=== PATIENT | male | born 1960 | race African-American/Black ===

== ENCOUNTER 2019-09-30 10:26 | Emergency (ER) | payer OTHER ==
[2019-09-30 12:34] LABS: #Eosinphils 0.1 thou/uL (0.0-0.7); #Lymphocytes 2.1 thou/uL (1.20-3.40); #Monocytes 0.6 thou/uL (0.11-0.59); #Neutrophils 5.8 thou/uL (1.40-6.50); %Eosinophils 0.9 % (0.0-10.0); %Lymphocytes 24.3 % (21.0-51.0); %Monocytes 6.9 % (0.0-10.0); %Neutrophils 67.9 % (42.0-75.0); Hemoglobin 14.1 g/dL (14.0-18.0); Mean Corpuscular HGB CONC 34.3 g/dL (32.0-36.0); Mean Corpuscular Hemoglobin 29.2 pg (27.0-31.0); Mean Corpuscular Volume 85.3 fL (78.0-98.0); Mean Platelet Volume 7.5 fL (7.4-10.4); Platelet Count 247 thou/uL (130-400); RBC Distribution Width 11.9 % (11.5-14.5); Red Blood Cell (RBC) Count 4.82 mill/uL (4.70-6.10); White Blood Cell (WBC) Count 8.5 thou/uL (4.8-10.8)
[2019-09-30] MEDS ORDERED: Sodium Chloride 0.9% 100 ML ONE (12:43)
[2019-09-30] MEDS ORDERED: Ketorolac Tromethamine 30 MG/ML VIAL ONE (12:43)
[2019-09-30] MEDS ORDERED: cefTRIAXone\\ROCEPHIN 2 GM VIAL ONE (12:43)
[2019-09-30] MEDS ORDERED: Dexamethasone 10 MG/ML VIAL ONE (12:45)
[2019-09-30 13:22] LABS: ALT (SGPT) 21 U/L (8-55); AST (SGOT) 17 U/L (5-34); Albumin 4.7 g/dL (3.5-5.0); Alkaline Phosphatase 71 U/L (40-110); Anion Gap 14 mmol/L (10-20); BUN (Urea Nitrogen) 7 mg/dL (8.4-25.7); Bilirubin, Total 0.4 mg/dL (0.2-1.2); Calc. Creatinine Clearance 0 mL/min (70-130); Calcium 9.6 mg/dL (7.8-10.44); Carbon Dioxide 24 mmol/L (22-29); Chloride 102 mmol/L (98-107); Estimated GFR-MDRD Greater than 90; Globulin 3.2 g/dL (2.4-3.5); Glucose 98 mg/dL (70-105); Lipase 297 U/L (8-78); Potassium 3.9 mmol/L (3.5-5.1); Protein, Total 7.9 g/dL (6.0-8.3); Sodium 136 mmol/L (136-145)
--- NOTE | 2019-09-30 13:38 | CT ---
EXAM: CT NECK SOFT TISSUE POST CONTRAST: HISTORY:Right submandibular swelling. COMPARISON:None CORRELATION:None FINDINGS: Brain parenchyma: No pathologic enhancement of the visualized brain parenchyma. Sinuses: Mucosal thickening of the paranasal sinuses Nasopharynx:Mild soft tissue fullness of the posterior nasopharynx. Correlate for lymphoid hyperplasi a. Oral cavity:Limited evaluation due to dental amalgam artifact. No obvious calcifications or masses in the oral cavity, including the sublingual space. Midline fatty raphae of the tongue is preserved. Hypopharynx: No mucosal abnormality. Larynx: No mucosal abnormality. Paraspinal muscles: Symmetric attenuation of the paraspinal muscles and symmetric attenuation of the sternocleidomastoid muscles.. Parotid and salivary glands: Symmetric attenuation of the parotid glands. Mild slight asymmetric hype remia and lobulation of the right submandibular gland. Mild dilatation of the right submandibular duct. A definite sialolith is not appreciated in the expected region of the orifice of the right subm andibular duct. Thyroid gland: Unremarkable. Spine: Vertebral body height is maintained. No fracture. No significant central canal stenosis or sig nificant neural foraminal narrowing. Limited evaluation due to technique. Lymph nodes: No evidence of lymphadenopathy by size criteria Lung apices and upper mediastinum: No acute abnormality. IMPRESSION: 1. Mild dilatation of the right submandibular gland with mild inflammatory change. Low-grade sialoade nitis is suspected. No associated spondylolysis. 2. Fullness of the nasopharynx which may represent lymphoid hyperplasia. Other etiologies cannot be e xcluded. Direct visualization to exclude mucosal based neoplasm is recommended
[2019-09-30] MEDS ORDERED: Iopamidol-370 76% 500 ML 1 ML ONE (13:46)
== END 2019-09-30 15:17 | disposition home or self-care (01) ==
LOC: ERS 10:26
DX: K11.20 Sialoadenitis, unspecified (principal); F41.9 Anxiety disorder, unspecified; F17.210 Nicotine dependence, cigarettes, uncomplicated; Z79.899 Other long term (current) drug therapy
CPT/HCPCS: 36415; 70491; 80053; 83690; 85025; 87040; 87081; 87430; 96361; 96365; 96375; J0696; J1100; J1885; J3490; Q9967

== ENCOUNTER 2022-01-19 12:37 | Outpatient (CLI) | payer OTHER | END 2022-01-19 12:38 | disposition home or self-care (01) | LOC: TBSIIMAG 12:37 | PROVIDERS: ATTEND Surgery | DX: M47.22 Other spondylosis with radiculopathy, cervical region (principal) | CPT/HCPCS: 72050; 72141 ==

== ENCOUNTER 2022-05-01 15:08 | Outpatient (CLI) | payer OTHER ==
[2022-05-01 16:11] LABS: Hemoglobin 13.6 g/dL (13.5-17.5); Mean Corpuscular HGB CONC 32.6 g/dL (32.0-36.0); Mean Corpuscular Hemoglobin 27.1 pg (27.0-33.0); Mean Corpuscular Volume 83.1 fl (81.2-95.1); Mean Platelet Volume 10.2 fl (7.4-10.4); Platelet Count 257 10x3/uL (150-450); RBC Distribution Width 14.1 % (11.5-14.5); Red Blood Cell (RBC) Count 5.02 10x6/uL (4.32-5.72); White Blood Cell (WBC) Count 5.8 10x3/uL (3.5-10.5)
[2022-05-01 16:33] LABS: Anion Gap 14 mmol/L (10-20); BUN (Urea Nitrogen) 7 mg/dL (8.4-25.7); Calc. Creatinine Clearance 0 mL/min (70-130); Calcium 9.9 mg/dL (7.8-10.44); Carbon Dioxide 28 mmol/L (23-31); Chloride 105 mmol/L (98-107); Estimated GFR 83; Glucose 90 mg/dL (80-115); Potassium 4.3 mmol/L (3.5-5.1); Sodium 143 mmol/L (136-145)
[2022-05-01 16:34] LABS: PTT 27.2 sec (22.0-33.0); Prothrombin Time 10.4 sec (9.5-12.1)
== END 2022-05-01 15:09 | disposition home or self-care (01) ==
LOC: LABBT 15:08
PROVIDERS: ATTEND Surgery
DX: Z01.818 Encounter for other preprocedural examination (principal); M51.06 Intervertebral disc disorders with myelopathy, lumbar region; M54.12 Radiculopathy, cervical region; M48.02 Spinal stenosis, cervical region; Z20.822 Contact with and (suspected) exposure to COVID-19
CPT/HCPCS: 80048; 85027; 85610; 85730; 86850; 86900; 86901; 87811; 93005; 93010

== ENCOUNTER 2022-05-01 15:30 | Inpatient (IN) | payer OTHER ==
[2022-05-01 16:11] LABS: Hemoglobin 13.6 g/dL (13.5-17.5); Mean Corpuscular HGB CONC 32.6 g/dL (32.0-36.0); Mean Corpuscular Hemoglobin 27.1 pg (27.0-33.0); Mean Corpuscular Volume 83.1 fl (81.2-95.1); Mean Platelet Volume 10.2 fl (7.4-10.4); Platelet Count 257 10x3/uL (150-450); RBC Distribution Width 14.1 % (11.5-14.5); Red Blood Cell (RBC) Count 5.02 10x6/uL (4.32-5.72); White Blood Cell (WBC) Count 5.8 10x3/uL (3.5-10.5)
[2022-05-01 16:33] LABS: Anion Gap 14 mmol/L (10-20); BUN (Urea Nitrogen) 7 mg/dL (8.4-25.7); Calc. Creatinine Clearance 0 mL/min (70-130); Calcium 9.9 mg/dL (7.8-10.44); Carbon Dioxide 28 mmol/L (23-31); Chloride 105 mmol/L (98-107); Estimated GFR 83; Glucose 90 mg/dL (80-115); Potassium 4.3 mmol/L (3.5-5.1); Sodium 143 mmol/L (136-145)
[2022-05-01 16:34] LABS: PTT 27.2 sec (22.0-33.0); Prothrombin Time 10.4 sec (9.5-12.1)
[2022-05-04] MEDS ORDERED: Thrombin 5000 UNITS/5 ML VIAL ONE (08:27)
[2022-05-04] MEDS ORDERED: Bacitracin Zinc Ointment 30 gm TUBE ONE (08:27)
[2022-05-04] MEDS ORDERED: fentaNYL Citrate/PF 100 MCG/2 ML SYRINGE ONE (08:51)
[2022-05-04] MEDS ORDERED: Midazolam HCl 2 mg/2 ml Vial ONE (08:51)
[2022-05-04] MEDS ORDERED: Lidocaine 1% PF 5 ML VIAL ONE (09:00)
[2022-05-04] MEDS ORDERED: ePHEDrine Sulfate 50 MG/10 ML VIAL ONE (09:00)
[2022-05-04] MEDS ORDERED: Vecuronium 10 MG VIAL ONE (09:00)
[2022-05-04] MEDS ORDERED: PROPOFOL 200 MG/20 ML VIAL ONE (09:00)
[2022-05-04] MEDS ORDERED: PHENYLEPHRINE-NS 100 MCG/ML 10 ML SYRINGE ONE (09:00)
[2022-05-04] MEDS ORDERED: Dexamethasone 20 MG/5 ML VIAL ONE (09:00)
[2022-05-04] MEDS ORDERED: Rocuronium Bromide 10 MG/ML (10ML VIAL) ONE (09:00)
[2022-05-04] MEDS ORDERED: Ondansetron PF 4 MG/2 ML Vial ONE (09:00)
[2022-05-04] MEDS ORDERED: Sodium Chloride 0.9% 100 ML ONE (09:02)
[2022-05-04] MEDS ORDERED: CEFAZOLIN 2 GM VIAL ONE (09:02)
[2022-05-04] MEDS ORDERED: Ondansetron PF 4 MG/2 ML Vial IVP PRN (09:48)
[2022-05-04] MEDS ORDERED: diphenhydrAMINE 25 MG CAP PO PRN (09:48)
[2022-05-04] MEDS ORDERED: tiZANidine HCl 4 MG TAB PO PRN (09:50)
[2022-05-04] MEDS ORDERED: HYDROmorphone 2 MG/ML VIAL ONE (12:16)
[2022-05-04] MEDS ORDERED: SUGAMMADEX SODIUM 200 MG/2 ML VIAL ONE (14:09)
[2022-05-04] MEDS ORDERED: HYDROmorphone 2 MG/ML VIAL SLOW IVP PRN (14:34)
[2022-05-04] MEDS ORDERED: Ondansetron HCl/PF 4 MG/2 ML Vial IVP PRN (14:34)
[2022-05-04] MEDS ORDERED: Promethazine HCl 25 MG/ML VIAL IVPB PRN (14:34)
[2022-05-04] MEDS ORDERED: Meperidine HCl/PF 25 MG/ML VIAL SLOW IVP PRN ×2 (14:34)
[2022-05-04] MEDS ORDERED: Promethazine HCl 25 MG/ML VIAL IM PRN (14:34)
[2022-05-04] MEDS ORDERED: Fentanyl 100 MCG/2 ML VIAL ONE (14:57)
[2022-05-04 16:31] VITALS: BMI 25.7
[2022-05-04] MEDS: CEFAZOLIN 2 GM in Sodium Chloride 0.9% 100 ML IVPB SCH ×2 (16:58→18:53)
[2022-05-04] MEDS: Sodium Chloride 0.9% 1,000 ML IV SCH ×2 (16:58→22:12)
[2022-05-04] MEDS: Loratadine 10 MG TAB PO SCH (21:08)
[2022-05-04] MEDS: Gabapentin 300 MG CAP PO SCH (21:08)
[2022-05-04] MEDS: Atorvastatin Calcium 20 MG TAB PO SCH (21:08)
[2022-05-05] MEDS: CEFAZOLIN 2 GM in Sodium Chloride 0.9% 100 ML IVPB SCH ×3 (02:22→18:05)
[2022-05-05] MEDS: Gabapentin 300 MG CAP PO SCH ×2 (07:40→20:46)
[2022-05-05] MEDS: Acetaminophen 325 MG TAB PO PRN ×2 (07:40→19:15)
[2022-05-05] MEDS ORDERED: Diazepam 5 MG TAB PO PRN (07:53)
[2022-05-05] MEDS: Cholecalciferol 1,000 UNITS (25 MCG) TAB PO SCH (09:56)
[2022-05-05] MEDS: Sodium Chloride 0.9% 1,000 ML IV SCH (14:07)
[2022-05-05] MEDS: Ketorolac Tromethamine 30 MG/ML VIAL IVP PRN (15:43)
[2022-05-05] MEDS: fentaNYL Citrate/PF 2,000 MCG in Sodium Chloride 0.9% 60 ML IV PRN (19:11)
[2022-05-05] MEDS: Chloraseptic Spray 180 ml Bottle PO PRN (19:12)
[2022-05-05] MEDS: Cepastat Lozenges 1 LOZ PO PRN (19:12)
[2022-05-05] MEDS: Atorvastatin Calcium 20 MG TAB PO SCH (20:46)
[2022-05-05] MEDS: Loratadine 10 MG TAB PO SCH (20:46)
[2022-05-06] MEDS: CEFAZOLIN 2 GM in Sodium Chloride 0.9% 100 ML IVPB SCH ×3 (02:09→18:07)
[2022-05-06] MEDS: Sodium Chloride 0.9% 1,000 ML IV SCH ×2 (02:10→15:53)
[2022-05-06] MEDS: Chloraseptic Spray 180 ml Bottle PO PRN ×2 (04:09→20:53)
[2022-05-06] MEDS: Cepastat Lozenges 1 LOZ PO PRN ×2 (04:09→15:53)
[2022-05-06] MEDS: Acetaminophen 325 MG TAB PO PRN (04:19)
[2022-05-06 06:56] LABS: Bacteria/HPF None Seen HPF (None Seen); Bilirubin Negative (Negative); Blood, Urine 3+ (Negative); Clarity Clear (Clear); Glucose, Urine (Dipstick) Normal (Negative); Ketone, Urine 20 mg/dL (Negative); Leukocyte 75 Leu/uL (Negative); Nitrite Negative (Negative); Protein, Urine (Dipstick) 30 mg/dL (Neg-Trace); Specific Gravity, Urine 1.023 (1.002-1.036); Urobilinogen Normal mg/dL (Less than 2)
[2022-05-06] MEDS ORDERED: Dexamethasone 4 mg/ml Vial SLOW IVP SCH (07:00)
[2022-05-06 07:09] LABS: Squamous Epithelial 0-3 HPF (0-3); Urine Culture Reflex Yes Yes
[2022-05-06 08:09] LABS: Anion Gap 14 mmol/L (10-20); BUN (Urea Nitrogen) 7 mg/dL (8.4-25.7); Calc. Creatinine Clearance 95 mL/min (70-130); Calcium 9.2 mg/dL (7.8-10.44); Carbon Dioxide 27 mmol/L (23-31); Chloride 99 mmol/L (98-107); Estimated GFR 87; Glucose 111 mg/dL (80-115); Sodium 136 mmol/L (136-145)
[2022-05-06 08:21] LABS: #Monocytes 1.4 thou/uL (0.11-0.59); #Neutrophils 14.2 thou/uL (1.40-6.50); %Basophils 0.1 % (0.0-1.0); %Eosinophils 0.1 % (0.0-10.0); %Lymphocytes 11.4 % (21.0-51.0); %Monocytes 7.7 % (0.0-10.0); %Neutrophils 80.7 % (42.0-75.0); Hemoglobin 12.9 g/dL (14.0-18.0); Mean Corpuscular HGB CONC 31.9 g/dL (32.0-36.0); Mean Corpuscular Hemoglobin 28.6 pg (27.0-31.0); Mean Corpuscular Volume 89.9 fL (78.0-98.0); Mean Platelet Volume 8.8 fL (7.4-10.4); Platelet Count 175 thou/uL (130-400); RBC Distribution Width 12.3 % (11.5-14.5); White Blood Cell (WBC) Count 17.1 thou/uL (4.8-10.8)
[2022-05-06] MEDS: Cholecalciferol 1,000 UNITS (25 MCG) TAB PO SCH (09:43)
[2022-05-06] MEDS: Gabapentin 300 MG CAP PO SCH ×3 (09:43→20:53)
[2022-05-06] MEDS: Loratadine 10 MG TAB PO SCH (20:53)
[2022-05-06] MEDS: Atorvastatin Calcium 20 MG TAB PO SCH (20:53)
[2022-05-06] MEDS ORDERED: Piperacillin/Tazobactam 3.375 GM in Sodium Chloride 0.9% 100 ML IVPB SCH (22:30)
[2022-05-06] MEDS ORDERED: Diazepam 10 MG/2 ML SYRINGE IVP PRN (23:05)
[2022-05-06] MEDS ORDERED: Acetaminophen 650 MG Suppository PR PRN (23:05)
[2022-05-06] MEDS ORDERED: diphenhydrAMINE 50 MG/ML VIAL IVP PRN (23:06)
[2022-05-06] MEDS: Ketorolac Tromethamine 30 MG/ML VIAL IVP PRN (23:45)
[2022-05-07] MEDS: CEFAZOLIN 2 GM in Sodium Chloride 0.9% 100 ML IVPB SCH ×3 (01:37→17:26)
[2022-05-07] MEDS: Piperacillin/Tazobactam 3.375 GM in Sodium Chloride 0.9% 100 ML IVPB SCH ×3 (01:39→17:54)
[2022-05-07] MEDS: Cepastat Lozenges 1 LOZ PO PRN ×2 (01:40→19:28)
[2022-05-07] MEDS: Sodium Chloride 0.9% 1,000 ML IV SCH ×2 (01:41→23:45)
[2022-05-07] MEDS: fentaNYL Citrate/PF 2,000 MCG in Sodium Chloride 0.9% 60 ML IV PRN (04:47)
[2022-05-07 06:02] LABS: Cardiac Risk 3.7 (Less than 4.5)
[2022-05-07] MEDS: Gabapentin 300 MG CAP PO SCH ×2 (08:54→21:43)
[2022-05-07] MEDS: Cholecalciferol 1,000 UNITS (25 MCG) TAB PO SCH (08:54)
[2022-05-07] MEDS ORDERED: Pantoprazole 40 MG VIAL IVP SCH (09:00)
[2022-05-07] MEDS: Dexamethasone 4 mg/ml Vial SLOW IVP SCH ×2 (11:17→17:54)
[2022-05-07] MEDS ORDERED: Latanoprost 0.005% Ophth Soln 2.5 ml Bottle EA EYE SCH (21:00)
[2022-05-07] MEDS ORDERED: Diazepam 5 MG TAB PO PRN (21:38)
[2022-05-07] MEDS: Loratadine 10 MG TAB PO SCH (21:44)
[2022-05-07] MEDS: Atorvastatin Calcium 20 MG TAB PO SCH (21:44)
[2022-05-08] MEDS: Dexamethasone 4 MG TAB PO SCH ×2 (01:09→06:42)
[2022-05-08] MEDS: Piperacillin/Tazobactam 3.375 GM in Sodium Chloride 0.9% 100 ML IVPB SCH ×2 (01:10→08:54)
[2022-05-08] MEDS ORDERED: Bisacodyl 5 MG TAB PO PRN (07:19)
[2022-05-08] MEDS ORDERED: Polyethylene Glycol 3350 17 GM Packet PO PRN (07:19)
[2022-05-08] MEDS ORDERED: HYDROcodone/Acetaminophen 5/325 mg Tablet PO PRN ×2 (07:45)
[2022-05-08] MEDS ORDERED: Acetaminophen/Codeine 30-300mg Tablet PO PRN (07:45)
[2022-05-08 08:30] VITALS: BP 132/79; TEMP 98.2
[2022-05-08] MEDS: Gabapentin 300 MG CAP PO SCH (08:52)
[2022-05-08] MEDS: Cholecalciferol 1,000 UNITS (25 MCG) TAB PO SCH (08:52)
[2022-05-08] MEDS: Chloraseptic Spray 180 ml Bottle PO PRN (08:53)
[2022-05-08] MEDS: Cepastat Lozenges 1 LOZ PO PRN (08:54)
[2022-05-08] MEDS: Sodium Chloride 0.9% 1,000 ML IV SCH (08:54)
[2022-05-08] MEDS ORDERED: Pantoprazole 40 MG VIAL IVP SCH (09:00)
[2022-05-08] MEDS ORDERED: Docusate 100 MG CAP PO SCH (09:00)
[2022-05-08] MEDS ORDERED: Dexamethasone 1 MG TAB PO SCH (12:00)
[2022-05-08] MEDS: Ketorolac Tromethamine 30 MG/ML VIAL IVP PRN (16:46)
[2022-05-09] MEDS ORDERED: Dexamethasone 1 MG TAB PO SCH (12:00)
[2022-05-10] MEDS ORDERED: Dexamethasone 1 MG TAB PO SCH (12:00)
== END 2022-05-08 17:25 | disposition home or self-care (01) | DRG 453 ==
LOC: SURG A 05-04 07:59 → MSONC 05-04 15:53
PROVIDERS: ADMIT Surgery; ATTEND Internal Medicine
PROC: 0RG20A0 Fusion of 2 or more Cervical Vertebral Joints with Interbody Fusion Device, Anterior Approach, Anterior Column, Open Approach (ICD-10-PCS; principal; 2022-05-04)
PROC: 0RG2071 Fusion of 2 or more Cervical Vertebral Joints with Autologous Tissue Substitute, Posterior Approach, Posterior Column, Open Approach (ICD-10-PCS; 2022-05-04)
PROC: 01N10ZZ Release Cervical Nerve, Open Approach (ICD-10-PCS; 2022-05-04)
PROC: 00NW0ZZ Release Cervical Spinal Cord, Open Approach (ICD-10-PCS; 2022-05-04)
PROC: 0RB30ZZ Excision of Cervical Vertebral Disc, Open Approach (ICD-10-PCS; 2022-05-04)
DX: M48.02 Spinal stenosis, cervical region (principal); J69.0 Pneumonitis due to inhalation of food and vomit; G99.2 Myelopathy in diseases classified elsewhere; N30.01 Acute cystitis with hematuria; M54.12 Radiculopathy, cervical region; E78.5 Hyperlipidemia, unspecified; M19.90 Unspecified osteoarthritis, unspecified site; G89.29 Other chronic pain; R13.10 Dysphagia, unspecified; Z79.899 Other long term (current) drug therapy; Z20.822 Contact with and (suspected) exposure to COVID-19
CPT/HCPCS: 36415; 71045; 76000; 80048; 80061; 81001; 85025; 85027; 85610; 85730; 86850; 86900; 86901; 87040; 87086; 87811; 89220; 93005; 93010; 93970; C1713; C1768; C9113; J0690; J1100; J1170; J1885; J2250; J2405; J2543; J2704; J3010; J3370; J3490; J7050; J8540; L0174

== ENCOUNTER 2022-06-27 11:33 | Outpatient (CLI) | payer OTHER | END 2022-06-27 11:34 | disposition home or self-care (01) | LOC: BICRAD 11:33 | PROVIDERS: ATTEND Surgery | DX: M50.10 Cervical disc disorder with radiculopathy, unspecified cervical region (principal); Z98.1 Arthrodesis status | CPT/HCPCS: 72040 ==

== ENCOUNTER 2023-10-26 09:28 | Outpatient (CLI) | payer OTHER ==
[2023-10-26 10:23] LABS: Hemoglobin 13.5 g/dL (13.5-17.5); Mean Corpuscular HGB CONC 32.1 g/dL (32.0-36.0); Mean Corpuscular Hemoglobin 27.3 pg (27.0-33.0); Mean Corpuscular Volume 84.8 fl (81.2-95.1); Mean Platelet Volume 10.1 fl (7.4-10.4); Platelet Count 259 10x3/uL (150-450); RBC Distribution Width 13.7 % (11.5-14.5); Red Blood Cell (RBC) Count 4.95 10x6/uL (4.32-5.72); White Blood Cell (WBC) Count 6.7 10x3/uL (3.5-10.5)
[2023-10-26 10:46] LABS: Anion Gap 14 mmol/L (10-20); BUN (Urea Nitrogen) 9 mg/dL (8.4-25.7); Calc. Creatinine Clearance 0 mL/min (70-130); Calcium 9.3 mg/dL (7.8-10.44); Carbon Dioxide 23 mmol/L (23-31); Chloride 107 mmol/L (98-107); Estimated GFR 94; Glucose 122 mg/dL (80-115); Potassium 4.2 mmol/L (3.5-5.1); Sodium 140 mmol/L (136-145)
[2023-10-26 10:53] LABS: PTT 27.9 sec (22.0-33.0); Prothrombin Time 10.5 sec (9.5-12.1)
== END 2023-10-26 09:29 | disposition home or self-care (01) ==
LOC: LABBT 09:28
PROVIDERS: ATTEND Surgery
DX: Z01.818 Encounter for other preprocedural examination (principal); M48.061 Spinal stenosis, lumbar region without neurogenic claudication; M71.30 Other bursal cyst, unspecified site; M51.26 Other intervertebral disc displacement, lumbar region
CPT/HCPCS: 80048; 85027; 85610; 85730; 93005; 93010

== ENCOUNTER 2023-10-30 07:34 | Observation (INO) | payer OTHER ==
[2023-10-30] MEDS ORDERED: PROPOFOL 20 ML ONE (09:27)
[2023-10-30] MEDS ORDERED: Fentanyl 250 MCG/5 ML VIAL ONE (09:27)
[2023-10-30] MEDS ORDERED: Rocuronium Bromide 10 MG/ML (10ML VIAL) ONE (09:29)
[2023-10-30] MEDS ORDERED: Lidocaine 1% PF 5 ML VIAL ONE (09:29)
[2023-10-30] MEDS ORDERED: Vancomycin 1 GM VIAL ONE (09:41)
[2023-10-30] MEDS ORDERED: Thrombin 5000 UNITS/5 ML VIAL ONE (09:42)
[2023-10-30] MEDS ORDERED: NEOSTIGMINE 3 MG/3 ML SYR 3 MG/3 ML SYRINGE ONE ×2 (09:50→13:08)
[2023-10-30] MEDS ORDERED: Glycopyrrolate 0.2 MG/ML 5 ML SYRINGE ONE (09:50)
[2023-10-30] MEDS ORDERED: CEFAZOLIN 2 GM VIAL ONE (10:44)
[2023-10-30] MEDS ORDERED: Sodium Chloride 0.9% 100 ML ONE (10:45)
[2023-10-30] MEDS ORDERED: PHENYLEPHRINE-NS 100 MCG/ML 10 ML SYRINGE ONE (11:32)
[2023-10-30] MEDS ORDERED: Vecuronium 10 MG VIAL ONE (11:36)
[2023-10-30] MEDS ORDERED: Dexamethasone 20 MG/5 ML VIAL ONE (11:43)
[2023-10-30] MEDS ORDERED: Ketorolac Tromethamine 30 MG (1 mL) VIAL ONE (11:43)
[2023-10-30] MEDS ORDERED: Ondansetron PF 4 MG/2 ML Vial ONE (11:43)
[2023-10-30] MEDS ORDERED: Promethazine HCl 25 MG/ML VIAL IM PRN ×2 (12:35)
[2023-10-30] MEDS ORDERED: PACU-Morphine 4MG/ML VIAL SLOW IVP PRN (12:35)
[2023-10-30] MEDS ORDERED: Morphine Sulfate 2 MG/ML SYRINGE SLOW IVP PRN (12:35)
[2023-10-30] MEDS ORDERED: Ondansetron HCl/PF 4 MG/2 ML Vial IVP PRN ×2 (12:35)
[2023-10-30] MEDS ORDERED: HYDROmorphone 2 MG/ML VIAL SLOW IVP PRN (12:35)
[2023-10-30] MEDS ORDERED: HYDROmorphone 0.5 MG/0.5 ML SYRINGE ONE ×4 (13:37→15:14)
[2023-10-30] MEDS ORDERED: diphenhydrAMINE 25 MG CAP PO PRN (13:37)
[2023-10-30] MEDS ORDERED: Acetaminophen/Codeine 30-300mg Tablet PO PRN (13:37)
[2023-10-30] MEDS ORDERED: Ondansetron PF 4 MG/2 ML Vial IVP PRN (13:37)
[2023-10-30] MEDS ORDERED: Acetaminophen 325 MG TAB PO PRN (13:37)
[2023-10-30] MEDS ORDERED: Famotidine 20 MG TAB PO PRN (13:40)
[2023-10-30] MEDS ORDERED: hydrALAZINE 20 MG/ML VIAL SLOW IVP PRN (13:41)
[2023-10-30] MEDS ORDERED: Cyclobenzaprine 10 MG TAB ONE (14:07)
[2023-10-30] MEDS: HYDROcodone/Acetaminophen 7.5/325 mg Tablet PO PRN (18:48)
[2023-10-30] MEDS: Sodium Chloride 0.9% 1,000 ML IV SCH (19:33)
[2023-10-30] MEDS: Loratadine 10 MG TAB PO SCH (20:16)
[2023-10-30] MEDS: Gabapentin 300 MG CAP PO SCH (20:16)
[2023-10-30] MEDS: Atorvastatin Calcium 20 MG TAB PO SCH (20:16)
[2023-10-30] MEDS: CEFAZOLIN 2 GM in Sodium Chloride 0.9% 100 ML IVPB SCH (20:16)
[2023-10-30] MEDS: Docusate 100 MG CAP PO SCH (20:16)
[2023-10-30] MEDS: Morphine 2 MG/ML VIAL SLOW IVP PRN (20:28)
[2023-10-30] MEDS: Cyclobenzaprine 10 MG TAB PO PRN (20:28)
[2023-10-30] MEDS: Latanoprost 0.005% Ophth Soln 2.5 ml Bottle EA EYE SCH (21:02)
[2023-10-30 21:05] VITALS: BMI 23.0
[2023-10-31] MEDS: traMADol HCl 50 MG TAB PO PRN (03:27)
[2023-10-31 07:56] VITALS: BP 130/80; TEMP 98.6
[2023-10-31] MEDS: Cholecalciferol 1,000 UNITS (25 MCG) TAB PO SCH (08:21)
== END 2023-10-31 12:23 | disposition home or self-care (01) ==
LOC: SDC 07:34 → SJJU 13:37
PROVIDERS: ADMIT Surgery; ATTEND Surgery
PROC: 00BY0ZZ Excision of Lumbar Spinal Cord, Open Approach (ICD-10-PCS; principal; 2023-10-31)
PROC: 01NB0ZZ Release Lumbar Nerve, Open Approach (ICD-10-PCS; 2023-10-31)
DX: M48.062 Spinal stenosis, lumbar region with neurogenic claudication (principal); M71.30 Other bursal cyst, unspecified site; M51.26 Other intervertebral disc displacement, lumbar region
CPT/HCPCS: J1100; J1170; J1885; J2272; J2405; J2704; J3010; J3370; J3490; J7050